=== PATIENT | female | born 1945 | race Caucasian/White ===

== ENCOUNTER 2022-03-18 06:27 | Day surgery (SDC) | payer OTHER ==
[~2022-03-18] VITALS: Ht 165 cm; Wt 87.0 kg
[~2022-03-18 06:27] MED LIST: ACETAMINOPHEN500 M1 PO; ADVIL200 M1 PO; ALBUTEROL2.5 MG/3 M INH; ALEVE220 M1 PO; ASPIRIN CHEWABL81 MG PO; ASPIRIN EC81 MG PO; ASPIRIN325 MG PO; ATENOLOL25 MG PO; AVALIDE 300-121 EACH PO; BENADRYL25 MG PO; CENTRUM SILVER1 EAC4 PO; FENOFIBRATE145 MG PO; NORVASC5 MG PO; OXYCODONE-ACET1 EAC1 PO; VENTOLIN HFA IN18 GM INH; VITAMIN D325 MC2 PO
[2022-03-19] MEDS ORDERED: ASPIRIN325 MG PO (08:21)
[2022-03-19] MEDS ORDERED: NORCO 5-325 TA1 EACH PO (08:22)
[2022-03-19 08:29] LABS: BASOPHIL 0.3 % (0-2); EOSINOPHIL 0.7 % (0-7); HCT 30.1 % (37.0-47.0); HGB 9.6 g/dl (12.5-16.0); LYMPHOCYTE 15.7 % (15-48); MCH 28.7 pg (25.0-31.0); MCHC 31.9 g/dL (32.0-36.0); MCV 89.9 fL (78.0-100.0); MONOCYTE 11.7 % (0-12); MPV 10.6 fL (6.0-9.5); NEUTROPHIL 71.3 % (41-80); NRBC 0; PLT 219 K/uL (150-400); RBC 3.35 M/uL (4.20-5.40); RDW 13.1 % (11.5-14.0); WBC 9.5 K/uL (4.0-10.5)
[2022-03-19] MEDS ORDERED: FEOSOL325 MG PO (08:33)
[2022-03-19 08:49] LABS: BUN/CREAT RATIO (CALC) 14.7 RATIO; CREATININE 1.09 mg/dL (0.51-0.95); POTASSIUM 4.1 mmol/L (3.5-5.1)
== END 2022-03-19 11:06 | disposition home or self-care (01) ==
LOC: FAS 06:27 → EDSTATUS 08:30 → FAS 08:30 → FMS 10:32 → FAS 03-19 11:06
PROVIDERS: Legal Medicine
DX: M75.121 Complete rotator cuff tear or rupture of right shoulder, not specified as traumatic (principal); G89.18 Other acute postprocedural pain; I10 Essential (primary) hypertension; E78.5 Hyperlipidemia, unspecified; Z88.0 Allergy status to penicillin; Z88.8 Allergy status to other drugs, medicaments and biological substances
CPT/HCPCS: 36415; 73020; 80048; 85025; 86850; 86900; 86901; 94010; 94762; 97162; 97166; 97530-GP; 97535; C1713; C1776; J0171; J2250; J2270; J2405; J2795; J7120